=== PATIENT | male | born 1950 | race African-American/Black ===

== ENCOUNTER 2023-10-12 12:10 | Outpatient (CLI) | payer MEDICARE, SELFPAY ==
--- NOTE | ~2023-10-12 | PE_ITS ---
EXAMINATION: PET_PETPSMAST_PT DATE: 10/12/2023 15:00 INDICATION: Prostate cancer TECHNIQUE: 5.217 mCi of Locametz Ga-68([id number]) was administered i.v. Low dose computed marychuy ography (CT) images were acquired from the base of the brain to the base of the brain to the proximal thighs for attenuation correction and anatomic localization. Positron emission tomography (PET) imag es were acquired in the same distribution beginning 102 minutes after injection. Images including fus ed PET/CT images were reconstructed in axial, coronal, and sagittal planes. Automated exposure contro l technique was employed. The dose-length product was 1101.94mGy-cm. COMPARISON: None FINDINGS: Head/neck: Typical pattern of symmetric physiologic increased activity in the lacrimal, parotid and submandibula r glands as well as along the mucosa of the nasal and oral cavities, pharynx and hypopharynx. No path ologically enlarged cervical lymphadenopathy or suspicious foci of increased uptake in the visualized head or neck. Chest: Mild dependent atelectasis in both lungs. No suspicious pulmonary nodules, pneumonia, pulmonary edema or pleural effusion. Heart size is normal. No pericardial effusion. Thoracic aorta is normal in bandar tra. No pathologically enlarged thoracic lymphadenopathy. Abdomen/pelvis/proximal thighs: Physiologic renal accumulation and excretion of activity in the kidneys, bladder and along portions o f ureters. Prostatomegaly with small regions of increased uptake in the right and left sides of the p rostate more prominent on the left with maximal SUV of 12.5 with maximal SUV on the right 6.8. Normal degree and slightly heterogenous pattern of increased uptake throughout the liver and spleen without radiologic correlate or dominant PSMA avid lesion. The gallbladder, pancreas and bilateral adrenal g lands are normal. Moderate uptake scattered throughout the bowels with typical duodenal and proximal jejunal predominance and without radiologic correlate, also likely physiologic. No other abnormal foc i of increased uptake or pathologically enlarged lymphadenopathy in the abdomen, pelvis or proximal t highs. Musculoskeletal: Severe osteoarthritis with prominent subarticular cystic change at the right hip. Severe spondylosis at the lumbosacral junction. Moderate cervical spondylosis and mild intervening thoracic and lumbar s pondylosis. No suspicious lytic, blastic or abnormally PSMA avid bone lesions. IMPRESSION: 1. Region of asymmetric increased uptake in the left side of the enlarged prostate consistent with pr imary prostate cancer. No metastatic disease. Reviewed, dictated and finalized at location A. IMPRESSION: 1. Region of asymmetric increased uptake in the left side of the enlarged prost ate consistent with primary prostate cancer. No metastatic disease.
== END 2023-10-12 12:11 | disposition home or self-care (01) ==
PROVIDERS: Visit Provider Urology
DX: C61 Malignant neoplasm of prostate (principal)
CPT/HCPCS: 78815; A9596